=== PATIENT | female | born 1980 | race Caucasian/White ===

== ENCOUNTER 2023-09-07 01:41 | Emergency (ER) | payer SELFPAY ==
[2023-09-07 01:48] VITALS: BP 136/94; PULSE 108; RESP 18; TEMP 98.4; BMI 30.2
[2023-09-07] MEDS ORDERED: ONDANSETRON 4 MG/2 ML VIAL IVPUSH ONE (01:50)
[2023-09-07] MEDS ORDERED: SODIUM CHLORIDE 0.9% 500 ML INFUS.BAG IV ONE (01:50)
[2023-09-07 03:11] LABS: BASO % 0.5 % (0-2.0); EOS % 2.3 % (0-4.5); HEMATOCRIT 43.9 % (32.4-45.2); HEMOGLOBIN 15.2 GM/dL (10.7-15.3); LYMPH % 47.1 % (8-40); MCH 29.7 pg (25.7-33.7); MCHC 34.5 g/dl (32.0-36.0); MEAN PLT VOLUME 8.8 fl (7.5-11.1); MONO % 6.7 % (3.8-10.2); NEUT % 43.4 % (42.8-82.8); PLATELET COUNT 297 10^3/uL (134-434); RBC 5.11 M/mm3 (3.60-5.2); RDW 14.7 % (11.6-15.6); WHITE BLOOD COUNT 7.1 K/mm3 (4.0-10.0)
[2023-09-07 03:53] LABS: POTASSIUM 3.6 mmol/L (3.5-5.1)
[2023-09-07 03:55] LABS: CALCIUM 8.8 mg/dL (8.5-10.1)
[2023-09-07 03:56] LABS: ALBUMIN 4.4 g/dl (3.4-5.0); BLOOD UREA NITROGEN 10.4 mg/dL (7-18)
[2023-09-07 03:59] LABS: CREATININE 0.8 mg/dL (0.55-1.3)
[2023-09-07 04:00] LABS: BILIRUBIN,TOTAL 0.4 mg/dL (0.2-1); TOT PROT 7.6 g/dl (6.4-8.2)
== END 2023-09-07 04:20 | disposition home or self-care (01) ==
LOC: JER 01:41
PROC: 3E033GC Introduction of Other Therapeutic Substance into Peripheral Vein, Percutaneous Approach (ICD-10-PCS; principal; 2023-09-07)
DX: R11.10 Vomiting, unspecified (principal); F10.129 Alcohol abuse with intoxication, unspecified; Y90.7 Blood alcohol level of 200-239 mg/100 ml
CPT/HCPCS: 36415; 80053; 80307; 84703; 85025; 99284-25